=== PATIENT | male | born 1955 | race Caucasian/White ===

== ENCOUNTER 2019-04-03 07:11 | Observation (INO) | payer BC ==
[2019-04-03] MEDS ORDERED: Sodium Chloride 0.9% 2.5 ML Syringe FLUSH PRN (07:19)
[2019-04-03] MEDS ORDERED: Aspirin 81 MG Tab.Chew PO ONE (07:19)
[2019-04-03] MEDS ORDERED: Sodium Chloride 0.9% 10 ML Syringe FLUSH PRN (07:19)
--- NOTE | 2019-04-03 07:19 | EDM.PDOC ---
ED HPI GENERAL MEDICAL PROBLEM - General Stated Complaint: CHEST PAIN, SHORTNESS OF BREATH Time Seen by Provider: 04/03/19 07:18 Source of Information: Reports: Patient History Limitations: Reports: No Limitations - History of Present Illness INITIAL COMMENTS - FREE TEXT/NARRATIVE: History of present illness: []Patient woke up at 5:00 with right-sided neck pain got dressed and went to a restaurant for breakfast where he had a brief episode of sharp 4/10 chest pain radiating to his back lasting a few seconds. Patient states the last 2 days he' s been feeling dizzy but has not had any syncopal episodes or previous episodes of chest pain. His any history of cardiac disease or previous [facility]. Patient has no chest pain now. Review of systems: As per history of present illness and below otherwise all systems reviewed and negative. Past medical history: As per history of present illness and as reviewed below otherwise noncontributory. Surgical history: As per history of present illness and as reviewed below otherwise noncontributory. Social history: No reported history of drug or alcohol abuse. Family history: As per history of present illness and as reviewed below otherwise noncontributory. Physical exam: General: Well developed, well nourished in NAD HEENT: Atraumatic, normocephalic, pupils reactive, negative for conjunctival pallor or scleral icterus, mucous membranes moist, throat clear, neck supple, nontender, trachea midline. Lungs: Clear to auscultation, breath sounds equal bilaterally, chest nontender. Heart: S1S2, regular, negative for clicks, rubs, or JVD. Abdomen: NABS, Soft, nondistended, nontender. Negative for masses or hepatosplenomegaly. Negative for costovertebral tenderness. Pelvis: Stable nontender. Genitourinary: Deferred. Rectal: Deferred. Extremities: Atraumatic, negative for cords or calf pain. Neurovascular unremarkable. Neuro: Awake, alert, oriented. Cranial nerves II through XII unremarkable. Cerebellum unremarkable. Motor and sensory unremarkable throughout. Exam nonfocal. Skin:warm and dry Diagnostics: monitor, EKG, chest x-ray, CBC, chemistry, troponin Therapeutics: IV aspirin nitroglycerin ED Course: Patient improved after nitroglycerin Impression: Chest pain Prescriptions: None Plan: Admit to hospitalist for further workup Definitive disposition and diagnosis as appropriate pending reevaluation and review of above. chest Pain Score (Numeric/FACES): 5 - Related Data Allergies Allergy/AdvReac Type Severity Reaction Status Date / Time acetaminophen [From Lortab] Allergy Cannot Verified 04/03/19 07:22 Remember hydrocodone [From Lortab] Allergy Cannot Verified 04/03/19 07:22 Remember Home Meds: Home Meds Empagliflozin [Jardiance] 25 mg PO DAILY 04/03/19 [History] Gabapentin [Neurontin] 300 mg PO BEDTIME 04/03/19 [History] Glimepiride 1 mg PO WITHBREAKFAST 04/03/19 [History] Lisinopril 10 mg PO BEDTIME 04/03/19 [History] Semaglutide [Ozempic] 1 mg SUBCUT WEEKLY 04/03/19 [History] Sildenafil [Revatio] 20 mg PO ASDIRECTED PRN MDD 5 TABLETS 04/03/19 [History] Tamsulosin [Tamsulosin 24 Hr] 0.4 mg PO DAILY 04/03/19 [History] metFORMIN [Glucophage XR] 1,000 mg PO BIDMEALS 04/03/19 [History] ED ROS GENERAL - Review of Systems Review Of Systems: See Below ED EXAM, GENERAL - Physical Exam Exam: See Below Course - Vital Signs Last Recorded V/S: Last Vital Signs Temp 97.8 F 04/03/19 09:27 Pulse 80 04/03/19 09:27 Resp 16 04/03/19 09:27 BP 144/79 H 04/03/19 09:27 Pulse Ox 97 04/03/19 09:27 - Orders/Labs/Meds Orders: Active Orders 24 hr Category Date Time Status Patient Status [ADT] Stat ADT 04/03/19 08:13 Active Cardiac Monitoring [RC] . DIRECTED Care 04/03/19 07:19 Active EKG Documentation Completion [RC] STAT Care 04/03/19 07:19 Active Pulse Oximetry [RC] ASDIRECTED Care 04/03/19 07:19 Active Aspirin Med 04/03/19 09:00 Active 162 mg PO DAILY Nitroglycerin [Nitrostat] Med 04/03/19 07:20 Active 0.4 mg SL Q5M PRN Sodium Chloride 0.9% [Saline Flush] Med 04/03/19 07:19 Active 10 ml FLUSH ASDIRECTED PRN Sodium Chloride 0.9% [Saline Flush] Med 04/03/19 07:19 Active 2.5 ml FLUSH ASDIRECTED PRN Saline Lock Insert [OM.PC] Stat Oth 04/03/19 07:19 Ordered Medication Orders Aspirin (Aspirin) 162 mg PO DAILY ULISSES Last Admin: 04/03/19 07:30 Dose: 162 mg Atorvastatin Calcium (Lipitor) 40 mg PO BEDTIME ULISSES Nitroglycerin (Nitrostat) 0.4 mg SL Q5M PRN PRN Reason: Chest Pain Last Admin: 04/03/19 07:49 Dose: 0.4 mg Admin: 04/03/19 07:33 Dose: 0.4 mg Sodium Chloride (Saline Flush) 10 ml FLUSH ASDIRECTED PRN PRN Reason: Keep Vein Open Last Admin: 04/03/19 07:34 Dose: 10 ml Sodium Chloride (Saline Flush) 2.5 ml FLUSH ASDIRECTED PRN PRN Reason: Keep Vein Open Last Admin: 04/03/19 07:34 Dose: 2.5 ml Labs: Laboratory Tests 04/03/19 04/03/19 04/03/19 Range/Units 07:13 07:13 07:13 WBC 6.14 (4.0-11.0) K/uL RBC 5.15 (4.50-5.90) M/uL Hgb 14.5 (13.0-17.0) g/dL Hct 43.0 (38.0-50.0) % MCV 83.5 (80.0-98.0) fL MCH 28.2 (27.0-32.0) pg MCHC 33.7 (31.0-37.0) g/dL RDW Std Deviation 40.2 (28.0-62.0) fl RDW Coeff of Aliza 13 (11.0-15.0) % Plt Count 181 (150-400) K/uL MPV 11.20 (7.40-12.00) fL Neut % (Auto) 67.8 (48.0-80.0) % Lymph % (Auto) 22.3 (16.0-40.0) % [place] % (Auto) 6.7 (0.0-15.0) % Eos % (Auto) 2.4 (0.0-7.0) % Baso % (Auto) 0.8 (0.0-1.5) % Neut # (Auto) 4.2 (1.4-5.7) K/uL Lymph # (Auto) 1.4 (0.6-2.4) K/uL [place] # (Auto) 0.4 (0.0-0.8) K/uL Eos # (Auto) 0.2 (0.0-0.7) K/uL Baso # (Auto) 0.1 (0.0-0.1) K/uL Nucleated RBC % 0.0 /100WBC Nucleated RBCs # 0 K/uL Sodium 141 (136-148) mmol/L Potassium 3.9 (3.5-5.1) mmol/L Chloride 105 (98-107) mmol/L Carbon Dioxide 25.0 (21.0-32.0) mmol/L BUN 16 (7.0-18.0) mg/dL Creatinine 1.1 (0.8-1.3) mg/dL Est Cr Clr Drug Dosing 63.88 mL/min Estimated GFR (MDRD) > 60.0 ml/min Glucose 237 H (74-106) mg/dL Hemoglobin A1c (4.5-6.2) % Calcium 8.7 (8.5-10.1) mg/dL Total Bilirubin 0.4 (0.2-1.0) mg/dL AST 12 L (15-37) IU/L ALT 16 (14-63) IU/L Alkaline Phosphatase 82 (46-116) U/L Troponin I < 0.050 (0.000-0.056) ng/mL Total Protein 7.2 (6.4-8.2) g/dL Albumin 3.7 (3.4-5.0) g/dL Globulin 3.5 (2.6-4.0) g/dL Albumin/Globulin Ratio 1.1 (0.9-1.6) Triglycerides 88 (0-200) mg/dL Cholesterol 181 (50-200) mg/dL LDL Cholesterol, Calc 118 (60-180) mg/dL VLDL Cholesterol 17 (5-55) mg/dL HDL Cholesterol 45 (40-60) mg/dL Cholesterol/HDL Ratio 4.0 (3.3-6.0) 04/03/19 Range/Units 07:13 WBC (4.0-11.0) K/uL RBC (4.50-5.90) M/uL Hgb (13.0-17.0) g/dL Hct (38.0-50.0) % MCV (80.0-98.0) fL MCH (27.0-32.0) pg MCHC (31.0-37.0) g/dL RDW Std Deviation (28.0-62.0) fl RDW Coeff of Aliza (11.0-15.0) % Plt Count (150-400) K/uL MPV (7.40-12.00) fL Neut % (Auto) (48.0-80.0) % Lymph % (Auto) (16.0-40.0) % [place] % (Auto) (0.0-15.0) % Eos % (Auto) (0.0-7.0) % Baso % (Auto) (0.0-1.5) % Neut # (Auto) (1.4-5.7) K/uL Lymph # (Auto) (0.6-2.4) K/uL [place] # (Auto) (0.0-0.8) K/uL Eos # (Auto) (0.0-0.7) K/uL Baso # (Auto) (0.0-0.1) K/uL Nucleated RBC % /100WBC Nucleated RBCs # K/uL Sodium (136-148) mmol/L Potassium (3.5-5.1) mmol/L Chloride (98-107) mmol/L Carbon Dioxide (21.0-32.0) mmol/L BUN (7.0-18.0) mg/dL Creatinine (0.8-1.3) mg/dL Est Cr Clr Drug Dosing mL/min Estimated GFR (MDRD) ml/min Glucose (74-106) mg/dL Hemoglobin A1c 7.2 H (4.5-6.2) % Calcium (8.5-10.1) mg/dL Total Bilirubin (0.2-1.0) mg/dL AST (15-37) IU/L ALT (14-63) IU/L Alkaline Phosphatase (46-116) U/L Troponin I (0.000-0.056) ng/mL Total Protein (6.4-8.2) g/dL Albumin (3.4-5.0) g/dL Globulin (2.6-4.0) g/dL Albumin/Globulin Ratio (0.9-1.6) Triglycerides (0-200) mg/dL Cholesterol (50-200) mg/dL LDL Cholesterol, Calc (60-180) mg/dL VLDL Cholesterol (5-55) mg/dL HDL Cholesterol (40-60) mg/dL Cholesterol/HDL Ratio (3.3-6.0) Meds: Medications Generic Name Dose Route Start Last Admin Trade Name Jensq PRN Reason Stop Dose Admin Aspirin 162 mg 04/03/19 09:00 04/03/19 07:30 Aspirin PO 162 mg DAILY ULISSES Administration Atorvastatin Calcium 40 mg 04/03/19 21:00 Lipitor PO BEDTIME ULISSES Nitroglycerin 0.4 mg 04/03/19 07:20 04/03/19 07:49 Nitrostat SL 0.4 mg Q5M PRN Administration Chest Pain Sodium Chloride 10 ml 04/03/19 07:19 04/03/19 07:34 Saline Flush FLUSH 10 ml ASDIRECTED PRN Administration Keep Vein Open Sodium Chloride 2.5 ml 04/03/19 07:19 04/03/19 07:34 Saline Flush FLUSH 2.5 ml ASDIRECTED PRN Administration Keep Vein Open Discontinued Medications Generic Name Dose Route Start Last Admin Trade Name Jensq PRN Reason Stop Dose Admin Aspirin 324 mg 04/03/19 07:19 04/03/19 07:34 Aspirin PO 04/03/19 07:20 Not Given ONETIME ONE Gadobenate Dimeglumine 20 ml 04/03/19 09:56 04/03/19 09:57 Multihance IVPUSH 04/03/19 09:57 13 ml ONETIME STA Administration Departure - Departure Time of Disposition: 09:30 Disposition: Refer to Observation Condition: Good Clinical Impression: Chest pain - My Orders Last 24 Hours: My Active Orders 04/03/19 07:19 Cardiac Monitoring [RC] . DIRECTED EKG Documentation Completion [RC] STAT Pulse Oximetry [RC] ASDIRECTED Sodium Chloride 0.9% [Saline Flush] 10 ml FLUSH ASDIRECTED PRN Sodium Chloride 0.9% [Saline Flush] 2.5 ml FLUSH ASDIRECTED PRN Saline Lock Insert [OM.PC] Stat 11/01/19 07:20 Nitroglycerin [Nitrostat] 0.4 mg SL Q5M PRN 04/03/19 08:13 Patient Status [ADT] Stat 04/03/19 09:00 Aspirin 162 mg PO DAILY - Assessment/Plan Last 24 Hours: My Active Orders 04/03/19 07:19 Cardiac Monitoring [RC] . DIRECTED EKG Documentation Completion [RC] STAT Pulse Oximetry [RC] ASDIRECTED Sodium Chloride 0.9% [Saline Flush] 10 ml FLUSH ASDIRECTED PRN Sodium Chloride 0.9% [Saline Flush] 2.5 ml FLUSH ASDIRECTED PRN Saline Lock Insert [OM.PC] Stat 04/03/19 07:20 Nitroglycerin [Nitrostat] 0.4 mg SL Q5M PRN 04/03/19 08:13 Patient Status [ADT] Stat 04/03/19 09:00 Aspirin 162 mg PO DAILY
[2019-04-03] MEDS: Nitroglycerin 0.4 MG Tab.SL SL PRN ×2 (07:33→07:49)
[2019-04-03 07:59] LABS: BLOOD UREA NITROGEN,BUN 16 mg/dL (7.0-18.0); CHLORIDE,CL 105 mmol/L (98-107); GLUCOSE RANDOM 237 mg/dL (74-106); POTASSIUM,K 3.9 mmol/L (3.5-5.1); SODIUM,NA 141 mmol/L (136-148)
--- NOTE | 2019-04-03 08:42 | CR ---
INDICATION: Chest pain. COMPARISON: 08/11/2018. TECHNIQUE: Single view of the chest. FINDINGS: Cardiomediastinal silhouette is within normal limits. No focal lung consolidation, pleural effusion or pneumothorax. Cardiac leads overlie the chest. IMPRESSION: No acute cardiopulmonary abnormality. Dictated by Db Hawkins MD @ Apr 03 2019 8:41AM Signed by Dr. Db Hawkins @ Apr 03 2019 8:42AM
[2019-04-03] MEDS ORDERED: Aspirin 81 MG Tab.Chew PO SCH (09:00)
--- NOTE | 2019-04-03 09:08 | PCM.HP.2 ---
H&P History of Present Illness - General Date of Service: 04/03/19 Admit Problem/Dx: Admission Diagnosis/Problem Admission Diagnosis/Problem Chest pain Source of Information: Patient History Limitations: Reports: No Limitations - History of Present Illness Initial Comments - Free Text/Narative: This 64 year old male with pmh og HTN, DM Type 2 presented to the ED with complaints of chest pain and slurred speech this morning. He reports he woke up with R sided neck pain. He went to eat breakfast and noted some difficulty swallowing and troubling speaking. He left and headed to work. While he was driving to work he started having L sided chest pain that went to his back and radiated down his left arm. He denies dyspnea with chest pain. Reports mild diaphoresis or a flushing feeling. and then the pain quickly subsided, within seconds per his report. He arrived at work and was talking to co-workers and they told him his speech was slurred and he agreed he was having a hard time getting words out. He reports mild headache as well, but nothing new and does not describe it as very bad. While in the ED, he did not tell ED provider of slurred speech event. Stroke Code called after this was disclosed to me. He denies focal neurologic deficits at this time, no limb weakness or sensory concerns. No blurred vision or double vision. He denies sore throat, sinus congestion or ear pain. No recent URI. He denies current chest pain. Reports mild R neck pain, pointing to anterior sternocleidomastoid. Reports mild frontal bilateral headache. No dyspnea or abdominal pain. No trouble urinating or black or blood BMs. In the ED Labwork WNL. Glucose 237. troponin negative. CXR negative. EKG reveals minimal ST elevation, but appears to be repolarization. Will monitor. BP on arrival was 190/100, give nitro x 2, brought BP to 150 SBP. He was feeling better, but was very concerned with events. PCP, Dr. Thompson chest Pain Score (Numeric/FACES): 5 - Related Data Allergies/Adverse Reactions: Allergies Allergy/AdvReac Type Severity Reaction Status Date / Time acetaminophen [From Lortab] Allergy Cannot Verified 04/03/19 07:22 Remember hydrocodone [From Lortab] Allergy Cannot Verified 04/03/19 07:22 Remember Home Medications: Home Meds Empagliflozin [Jardiance] 25 mg PO DAILY 04/03/19 [History] Gabapentin [Neurontin] 300 mg PO BEDTIME 04/03/19 [History] Glimepiride 1 mg PO WITHBREAKFAST 04/03/19 [History] Lisinopril 10 mg PO BEDTIME 04/03/19 [History] Semaglutide [Ozempic] 1 mg SUBCUT WEEKLY 04/03/19 [History] Sildenafil [Revatio] 20 mg PO ASDIRECTED PRN MDD 5 TABLETS 04/03/19 [History] Tamsulosin [Tamsulosin 24 Hr] 0.4 mg PO DAILY 04/03/19 [History] metFORMIN [Glucophage XR] 1,000 mg PO BIDMEALS 04/03/19 [History] Past Medical History Cardiovascular History: Reports: Hypertension. Denies: Afib, Blood Clots/VTE/ DVT, [place], Stents Respiratory History: Reports: None. Denies: Asthma, COPD Gastrointestinal History: Reports: None Genitourinary History: Reports: None Neurological History: Reports: Migraines. Denies: CVA, TIA Psychiatric History: Reports: None Endocrine/Metabolic History: Reports: Diabetes, Type II. Denies: Obesity/BMI 30 + Oncologic (Cancer) History: Reports: None - Infectious Disease History Infectious Disease History: Reports: None - Past Surgical History Musculoskeletal Surgical History: Reports: Other (See Below) Other Musculoskeletal Surgeries/Procedures:: back surgery, left index amputation Social & Family History - Family History Family Medical History: Noncontributory - Tobacco Use Smoking Status *Q: Light Tobacco Smoker Tobacco Use Within Last Twelve Months: Smokeless Tobacco Years of Tobacco use: 1 Packs/Tins Daily: 1 - Alcohol Use Alcohol Use History: No Alcohol Use Frequency: Rarely - Recreational Drug Use Recreational Drug Use: No - Living Situation & Occupation Occupation: Employed H&P Review of Systems - Review of Systems: Review Of Systems: See Below General: Reports: No Symptoms. Denies: Fever, Chills, Malaise, Weakness HEENT: Denies: Headaches, Sinus Congestion, Sore Throat, Vertigo Pulmonary: Denies: Shortness of Breath, Cough, Sputum Cardiovascular: Reports: Chest Pain (last a few seconds, see HPI) Gastrointestinal: Reports: No Symptoms. Denies: Abdominal Pain, Black Stool, Bloody Stool, Nausea, Vomiting Genitourinary: Reports: No Symptoms. Denies: Dysuria, Frequency, Burning Musculoskeletal: Reports: Neck Pain (R anterior neck and bilateral trapezius) Skin: Reports: No Symptoms. Denies: Rash, Wound Psychiatric: Reports: No Symptoms. Denies: Anxiety Neurological: Reports: Trouble Speaking (slurred speech noted at work, see HPI. No longer exhibiting these symptoms) Hematologic/Lymphatic: Reports: No Symptoms Immunologic: Reports: No Symptoms Exam - Exam Exam: See Below - Vital Signs Vital Signs: Last Vital Signs Temp 97.4 F 04/03/19 07:18 Pulse 80 04/03/19 08:15 Resp 18 04/03/19 08:15 BP 146/87 H 04/03/19 08:15 Pulse Ox 98 04/03/19 08:15 Weight: 64.864 kg - Exam General: Alert, Oriented, Cooperative HEENT: Conjunctiva Clear, Mucosa Moist & [place], Pupils Equal, Pupils Reactive, PERRLA Neck: Supple, Trachea Midline, +2 Carotid Pulse wo Bruit, Full Range of Motion. No: Lymphadenopathy Lungs: Clear to Auscultation, Normal Respiratory Effort Cardiovascular: Regular Rate, Regular Rhythm, Normal S2. No: Systolic Murmur GI/Abdominal Exam: Normal Bowel Sounds, Soft, Non-Tender Back Exam: Normal Inspection, Full Range of Motion Extremities: Normal Inspection, Normal Range of Motion, Non-Tender, No Pedal Edema Skin: Warm, Dry. No: Rash Neurological: Cranial Nerves Intact, Reflexes Equal Bilateral, Normal Gait, Normal Speech Neuro Extensive - Mental Status: Alert, Oriented x3, Normal Mood/Affect, Normal Cognition Neuro Extensive - Motor, Sensory, Reflexes: CN II-XII Intact, Normal Gait. No: Facial palsy (L), Facial Palsy (R) Psychiatric: Alert, Normal Affect, Normal Mood - Patient Data Lab Results Last 24 hrs: Laboratory Results - last 24 hr 04/03/19 04/03/19 Range/Units 07:13 07:13 WBC 6.14 (4.0-11.0) K/uL RBC 5.15 (4.50-5.90) M/uL Hgb 14.5 (13.0-17.0) g/dL Hct 43.0 (38.0-50.0) % MCV 83.5 (80.0-98.0) fL MCH 28.2 (27.0-32.0) pg MCHC 33.7 (31.0-37.0) g/dL RDW Std Deviation 40.2 (28.0-62.0) fl RDW Coeff of Aliza 13 (11.0-15.0) % Plt Count 181 (150-400) K/uL MPV 11.20 (7.40-12.00) fL Neut % (Auto) 67.8 (48.0-80.0) % Lymph % (Auto) 22.3 (16.0-40.0) % [place] % (Auto) 6.7 (0.0-15.0) % Eos % (Auto) 2.4 (0.0-7.0) % Baso % (Auto) 0.8 (0.0-1.5) % Neut # (Auto) 4.2 (1.4-5.7) K/uL Lymph # (Auto) 1.4 (0.6-2.4) K/uL [place] # (Auto) 0.4 (0.0-0.8) K/uL Eos # (Auto) 0.2 (0.0-0.7) K/uL Baso # (Auto) 0.1 (0.0-0.1) K/uL Nucleated RBC % 0.0 /100WBC Nucleated RBCs # 0 K/uL Sodium 141 (136-148) mmol/L Potassium 3.9 (3.5-5.1) mmol/L Chloride 105 (98-107) mmol/L Carbon Dioxide 25.0 (21.0-32.0) mmol/L BUN 16 (7.0-18.0) mg/dL Creatinine 1.1 (0.8-1.3) mg/dL Est Cr Clr Drug Dosing 63.88 mL/min Estimated GFR (MDRD) > 60.0 ml/min Glucose 237 H (74-106) mg/dL Calcium 8.7 (8.5-10.1) mg/dL Total Bilirubin 0.4 (0.2-1.0) mg/dL AST 12 L (15-37) IU/L ALT 16 (14-63) IU/L Alkaline Phosphatase 82 (46-116) U/L Troponin I < 0.050 (0.000-0.056) ng/mL Total Protein 7.2 (6.4-8.2) g/dL Albumin 3.7 (3.4-5.0) g/dL Globulin 3.5 (2.6-4.0) g/dL Albumin/Globulin Ratio 1.1 (0.9-1.6) Result Diagrams: 04/03/19 07:13 04/03/19 07:13 EKG INTERPRETATION EKG Date: 04/03/19 Rate (Beats/Min): 84 P-Wave: Present QRS: Normal ST-T: Elevated (in lead V2-3, appears to be repolarization) QT: Normal Comparison: NA - No Prior EKG - Problem List (1) TIA (transient ischemic attack) SNOMED Code(s): 310381747 ICD Code: G45.9 - TRANSIENT CEREBRAL ISCHEMIC ATTACK, UNSPECIFIED Status: Acute Current Visit: Yes (2) Chest pain SNOMED Code(s): 60061156 ICD Code: R07.9 - CHEST PAIN, UNSPECIFIED Status: Acute Current Visit: Yes (3) HTN (hypertension) SNOMED Code(s): 53175447 ICD Code: I10 - ESSENTIAL (PRIMARY) HYPERTENSION Status: Chronic Current Visit: Yes Qualifiers: Hypertension type: essential hypertension Qualified Code(s): I10 - Essential (primary) hypertension (4) DM type 2 (diabetes mellitus, type 2) SNOMED Code(s): 26146726 ICD Code: E11.9 - TYPE 2 DIABETES MELLITUS WITHOUT COMPLICATIONS Status: Chronic Current Visit: Yes (5) Chewing tobacco use SNOMED Code(s): 07051817 ICD Code: Z72.0 - TOBACCO USE Status: Acute Current Visit: Yes Problem List Initiated/Reviewed/Updated: Yes Orders Last 24hrs: Active Orders 24 hr Category Date Time Status Patient Status [ADT] Stat ADT 04/03/19 08:13 Active Cardiac Monitoring [RC] . DIRECTED Care 04/03/19 07:19 Active EKG Documentation Completion [RC] STAT Care 04/03/19 07:19 Active Pulse Oximetry [RC] ASDIRECTED Care 04/03/19 07:19 Active Head wo Cont [CT] Stat Exams 04/03/19 08:49 Taken GLYCOSYLATED HEMOGLOBIN,HGBA1C [CHEM] Stat Lab 04/03/19 09:04 Ordered LIPID PANEL [CHEM] Stat Lab 04/03/19 09:04 Ordered UA W/ULI RFLX IF INDICATED [URIN] Stat Lab 04/03/19 09:01 Received Aspirin Med 04/03/19 09:00 Active 162 mg PO DAILY Nitroglycerin [Nitrostat] Med 04/03/19 07:20 Active 0.4 mg SL Q5M PRN Sodium Chloride 0.9% [Saline Flush] Med 04/03/19 07:19 Active 10 ml FLUSH ASDIRECTED PRN Sodium Chloride 0.9% [Saline Flush] Med 04/03/19 07:19 Active 2.5 ml FLUSH ASDIRECTED PRN Saline Lock Insert [OM.PC] Stat Oth 04/03/19 07:19 Ordered Medication Orders Aspirin (Aspirin) 162 mg PO DAILY ULSISES Last Admin: 04/03/19 07:30 Dose: 162 mg Nitroglycerin (Nitrostat) 0.4 mg SL Q5M PRN PRN Reason: Chest Pain Last Admin: 04/03/19 07:49 Dose: 0.4 mg Admin: 04/03/19 07:33 Dose: 0.4 mg Sodium Chloride (Saline Flush) 10 ml FLUSH ASDIRECTED PRN PRN Reason: Keep Vein Open Last Admin: 04/03/19 07:34 Dose: 10 ml Sodium Chloride (Saline Flush) 2.5 ml FLUSH ASDIRECTED PRN PRN Reason: Keep Vein Open Last Admin: 04/03/19 07:34 Dose: 2.5 ml Assessment/Plan Comment:: This 64 year old male admitted with suspected TIA and chest pain 1. TIA: Stroke code called in ED. Head CT obtained, which returned negative. MRI brain and MRA head and neck ordered along with ECHO. Reports he is non complaint with HTN medication most days. BP elevated on arrival 190s. Cholesterol panel reveals LDL 118, HDL 45, Total 181, and triglycerides 88. A1c 7.2. Will Continue ASA, monitor on telemetry and start 80 mg Atorvastatin. Currently asymptomatic. Counseled on tobacco use and the importance of stopping especially with HTN and now suspected TIA for 5 minutes. 2. Chest pain: Last only a few seconds. Will monitor troponins Q3 hr x 3 due to risk factors. Monitor on Telemetry. Continue ASA 3. DM type 2: Hold PO medications. Novolog SSI with check BS with meals. 4. HTN: Elevated, allow permissive for now until MRI returns. If no CVA will continue Lisinopril and monitor. VTE prophylaxis: Lovenox. Dispo: 1-2 days. - Mortality Measure Prognosis:: Good
--- NOTE | 2019-04-03 09:11 | CT ---
INDICATION: Slurred speech. TECHNIQUE: CT head without contrast. COMPARISON: None. FINDINGS: CSF spaces: Within normal limits for age. Brain parenchyma: The ray-white differentiation is normal. No sign of mass, hemorrhage, or midline shift. Skull base and calvarium: The visualized paranasal sinuses and mastoid air cells demonstrate no acute or significant findings. The visualized orbits are grossly unremarkable. No skull fractures. IMPRESSION: No acute intracranial abnormality. Please note that CT is insensitive for early detection acute ischemia. Consider follow-up CT, or MRI if clinically indicated. Please note that all CT scans at this facility use dose modulation, iterative reconstruction, and/or weight-based dosing when appropriate to reduce radiation dose to as low as reasonably achievable. Dictated by Db Hawkins MD @ Apr 03 2019 9:08AM Signed by Dr. Db Hawkins @ Apr 03 2019 9:10AM
[2019-04-03 09:42] LABS: HEMOGLOBIN A1C 7.2 % (4.5-6.2)
[2019-04-03] MEDS ORDERED: Gadobenate Dimeglumine 529 MG/ML 20 ML SDV IVPUSH STA (09:56)
[2019-04-03] MEDS ORDERED: Enoxaparin 40 MG/0.4 ML Syringe SUBCUT SCH (12:00)
[2019-04-03] MEDS: Insulin Aspart 100 Units/ML 3 ML Pen SUBCUT SCH ×2 (12:21→16:51)
[2019-04-03 12:34] LABS: LIPASE 197 U/L (73-393)
--- NOTE | 2019-04-03 12:34 | MR ---
Indication: TIA. Slurred speech. Technique: MRI Head: performed before and after IV contrast. MRA Head: performed without IV contrast. MRA Neck: performed before and after IV contrast. Gadolinium-based contrast agent: 13 mL MultiHance IV contrast. Comparison: CT head 04/03/2019 Findings: MRI Head: No evidence for recent or remote infarct or hemorrhage. No intracranial mass effect. No ventricular obstruction. Grossly normal flow voids are maintained in the directly imaged intracranial vascular structures. The craniovertebral junction is unremarkable, with a patent foramen magnum. Both temporal bones are clear. MRA Head: Internal carotid arteries, middle cerebral arteries and anterior cerebral arteries are normal. MCA bifurcations and anterior communicating artery region are normal. Distal vertebral arteries, basilar artery, and posterior cerebral arteries are normal. Basilar tip is normal. No aneurysms, stenoses, or occlusions, throughout. MRA Neck: The cervical segments of both vertebral arteries are patent. The visualized portions of the aortic arch, great vessel origins and proximal subclavian arteries are unremarkable. No evidence for hemodynamically significant internal carotid artery stenosis by NASCET criteria. Impression: MRI Head: 1. No acute pathology identified. No evidence for mass, hemorrhage or recent infarct. MRA Head: 1. No proximal arterial occlusion, high-grade stenosis, aneurysm, dissection, or vascular malformation. MRA Neck: 1. No evidence for hemodynamically significant ICA stenosis by NASCET criteria. 2. No evidence for carotid or vertebral artery dissection in the neck. Dictated by Db Clemente MD @ Apr 03 2019 12:20PM Signed by Dr. Db Clemente @ Apr 03 2019 12:33PM
[2019-04-03] MEDS ORDERED: Lisinopril 10 MG Tab PO SCH (13:22)
[2019-04-03] MEDS ORDERED: atorvaSTATin 40 MG Tab PO SCH (21:00)
[2019-04-03] MEDS ORDERED: Gabapentin 300 MG Cap PO SCH (21:00)
[2019-04-04] MEDS ORDERED: Tamsulosin 0.4 MG Cap.ER PO SCH (09:00)
== END 2019-04-03 19:30 | disposition home or self-care (01) ==
LOC: MW.ED 07:11 → MW.MS 08:57
PROVIDERS: ADMIT Student in an Organized Health Care Education/Training Program; ATTEND Student in an Organized Health Care Education/Training Program
DX: G45.9 Transient cerebral ischemic attack, unspecified (principal); R07.9 Chest pain, unspecified; I10 Essential (primary) hypertension; E11.9 Type 2 diabetes mellitus without complications; G43.909 Migraine, unspecified, not intractable, without status migrainosus; F17.210 Nicotine dependence, cigarettes, uncomplicated; Z88.6 Allergy status to analgesic agent; Z88.5 Allergy status to narcotic agent; Z79.899 Other long term (current) drug therapy
CPT/HCPCS: 36415; 70450; 70544; 70547; 70553; 71045; 80053; 80061; 81003; 82150; 82962; 83036; 83690; 84484; 85025; 93005; 93306; 96372; 99285; A9270; A9577; G0378; J1650; 99284

== ENCOUNTER 2019-05-11 08:17 | Day surgery (SDC) | payer BC ==
[~2019-05-11 08:17] MED LIST: Lactated Ringers 1,000 ML IV SCH; Lidocaine 2% 5 ML SDV ONE; Ondansetron 4 MG/2 ML SDV ONE; Propofol 200 MG/20 ML SDV ONE
--- NOTE | 2019-05-11 08:53 | PCM.PREANE ---
Preanesthetic Assessment - Anesthesia/Transfusion/Family Hx Anesthesia History: Prior Anesthesia Without Reaction Family History of Anesthesia Reaction: No Transfusion History: No Prior Transfusion(s) - Review of Systems General: No Symptoms Pulmonary: No Symptoms Cardiovascular: No Symptoms Gastrointestinal: No Symptoms Neurological: No Symptoms - Physical Assessment Height: 5 ft 8 in Weight: 65.771 kg ASA Class: 2 Mental Status: Alert & Oriented x3 Airway Class: Mallampati = 2 Dentition: Reports: Normal Dentition ROM/Head Extension: Full Lungs: Clear to Auscultation, Normal Respiratory Effort Cardiovascular: Regular Rate, Regular Rhythm - Allergies Allergies/Adverse Reactions: Allergies Allergy/AdvReac Type Severity Reaction Status Date / Time acetaminophen [From Lortab] Allergy Hallucinati Verified 05/07/19 14:23 ons hydrocodone [From Lortab] Allergy Hallucinati Verified 05/07/19 14:23 ons - Blood Blood Available: No - Anesthesia Plan Pre-Op Medication Ordered: None - Acknowledgements Anesthesia Type Planned: General Anesthesia Pt an Appropriate Candidate for the Planned Anesthesia: Yes Alternatives and Risks of Anesthesia Discussed w Pt/Guardian: Yes Pt/Guardian Understands and Agrees with Anesthesia Plan: Yes Additional Comments: PMH: htn, dm2, periph neuropathy, chews tobacco- non smoker PLAN: tiva PreAnesthesia Questionnaire HEENT History: Reports: Other (See Below) Other HEENT History: wears glasses/contacts, top upper permanent bridge Cardiovascular History: Reports: Hypertension Respiratory History: Reports: None Gastrointestinal History: Reports: None Other Gastrointestinal History: occasional heartburn, intermittent epigastric pain Genitourinary History: Reports: None Musculoskeletal History: Reports: Fracture Other Musculoskeletal History: hx fx jaw Neurological History: Reports: Migraines Psychiatric History: Reports: None Endocrine/Metabolic History: Reports: Diabetes, Type II Hematologic History: Reports: None Immunologic History: Reports: None Oncologic (Cancer) History: Reports: None Dermatologic History: Reports: Eczema - Infectious Disease History Infectious Disease History: Reports: None - Past Surgical History Head Surgeries/Procedures: Reports: None HEENT Surgical History: Reports: None Cardiovascular Surgical History: Reports: None Respiratory Surgical History: Reports: None GI Surgical History: Reports: Colonoscopy Endocrine Surgical History: Reports: None Neurological Surgical History: Reports: Lumbar Spine Other Neurological Surgeries/Procedures: hx back surgery Musculoskeletal Surgical History: Reports: Other (See Below) Other Musculoskeletal Surgeries/Procedures:: back surgery, left index amputation Oncologic Surgical History: Reports: None Dermatological Surgical History: Reports: None - SUBSTANCE USE Tobacco Use Within Last Twelve Months: Other (See Below) Recreational Drug Use History: No - HOME MEDS Home Medications: Home Meds Empagliflozin [Jardiance] 10 mg PO DAILY 04/03/19 [History] Glimepiride 1 mg PO WITHBREAKFAST 04/03/19 [History] Lisinopril 20 mg PO BEDTIME 04/03/19 [History] Semaglutide [Ozempic] 1 mg SUBCUT WEEKLY 04/03/19 [History] metFORMIN [Glucophage XR] 1,000 mg PO BIDMEALS 04/03/19 [History] Omeprazole 20 mg PO DAILY 05/06/19 [History] atorvaSTATin [Lipitor] 40 mg PO BEDTIME 05/06/19 [History] - CURRENT (IN HOUSE) MEDS Current Meds: Current Medications Lactated Ringer's (Ringers, Lactated) 1,000 mls @ 125 mls/hr IV ASDIRECTED ULISSES Discontinued Medications Lidocaine (Xylocaine-Mpf 2%) Confirm Administered Dose 5 ml .ROUTE .STK-MED ONE Stop: 05/11/19 07:25 Ondansetron HCl (Zofran) Confirm Administered Dose 4 mg .ROUTE .STK-MED ONE Stop: 05/11/19 07:25 Propofol (Diprivan 20 Ml) Confirm Administered Dose 400 mg .ROUTE .STK-MED ONE Stop: 05/11/19 07:24
--- NOTE | 2019-05-11 10:55 | PCM.OPNOTE ---
- General Post-Op/Procedure Note Date of Surgery/Procedure: 05/11/19 Operative Procedure(s): Colonoscopy with cold rectal polypectomy Pre Op Diagnosis: Rectal bleeding Post-Op Diagnosis: Rectal polyp, sigmoid diverticulosis, internal hemorrhoids Anesthesia Technique: MAC (ASA II) Primary Surgeon: Aayush Casey Condition: Good Free Text/Narrative:: DICTATION [id number] CPT CODE 83768
[2019-05-11] MEDS ORDERED: Lactated Ringers 1,000 ML IV SCH (11:00)
--- NOTE | 2019-05-11 11:33 | PCM.POSTAN ---
POST ANESTHESIA ASSESSMENT - MENTAL STATUS Mental Status: Alert, Oriented - VITAL SIGNS Vital Signs: Last Vital Signs Temp 97.7 F 05/11/19 08:35 Pulse 67 05/11/19 11:10 Resp 12 05/11/19 11:10 BP 136/76 05/11/19 11:10 Pulse Ox 96 05/11/19 11:10 - RESPIRATORY Respiratory Status: Respiratory Rate WNL, Airway Patent, O2 Saturation Stable - CARDIOVASCULAR CV Status: Pulse Rate WNL, Blood Pressure Stable - GASTROINTESTINAL GI Status: No Symptoms - POST OP HYDRATION Hydration Status: Adequate & Stable
--- NOTE | 2019-05-11 11:33 | PCM48HPAN ---
Post Anesthesia Note - EVALUATION WITHIN 48HRS OF ANESTHETIC Vital Signs in Normal Range: Yes Patient Participated in Evaluation: Yes Respiratory Function Stable: Yes Airway Patent: Yes Cardiovascular Function Stable: Yes Hydration Status Stable: Yes Pain Control Satisfactory: Yes Nausea and Vomiting Control Satisfactory: Yes Mental Status Recovered: Yes Vital Signs: Last Vital Signs Temp 97.7 F 05/11/19 08:35 Pulse 67 05/11/19 11:10 Resp 12 05/11/19 11:10 BP 136/76 05/11/19 11:10 Pulse Ox 96 05/11/19 11:10
--- NOTE | 2019-05-11 16:03 | OR ---
SURGEON: Aayush Casey M.D. DATE OF PROCEDURE: 05/11/2019 OPERATION PERFORMED: Colonoscopy with cold rectal polypectomy. PRIMARY SURGEON: Aayush Casey M.D. ANESTHESIA: MAC. ASA CLASSIFICATION: 2. PREOPERATIVE DIAGNOSIS: Rectal bleeding. POSTOPERATIVE DIAGNOSES: 1. Rectal polyp. 2. Sigmoid diverticulosis. 3. Mild internal hemorrhoids. DESCRIPTION OF PROCEDURE: The patient was taken to the endoscopy room and positioned on the endoscopy table in the left lateral decubitus position. Time-out was called for appropriate identification of the patient and procedure. Monitored anesthesia care was provided. The colonoscope was inserted into the rectum and advanced with minimal difficulty to the cecum where the colonoscope was retroflexed to visualize the ascending colon from below. The colonoscope was then straightened and slowly withdrawn. The cecum, ascending colon, hepatic flexure, transverse colon, splenic flexure, and descending colon showed no tumors, polyps, diverticula, or angiodysplastic changes. Sigmoid colon demonstrates numerous diverticula. No stricture, spasm, or bleeding was noted. No inflammatory changes were noted in the sigmoid colon and there were no sigmoid polyps. One small polyp was encountered in the rectum and removed with cold biopsy forceps. There was no significant bleeding noted. The colonoscope was then withdrawn to the distal rectum and retroflexed to visualize the anal orifice from above. No tumors or polyps were seen. The patient does have some mild hemorrhoidal changes. There was no acute bleeding noted. The colonoscope was then straightened, the rectum aspirated, and the colonoscope removed. The patient tolerated the procedure well and was taken to recovery room in stable condition. ADWOA ZAMORA /[id number]
== END 2019-05-11 11:40 | disposition home or self-care (01) ==
LOC: MW.SDS 08:17
PROVIDERS: ATTEND Surgery
DX: K57.31 Diverticulosis of large intestine without perforation or abscess with bleeding (principal); K62.1 Rectal polyp; K64.8 Other hemorrhoids; E11.9 Type 2 diabetes mellitus without complications; I10 Essential (primary) hypertension; G43.909 Migraine, unspecified, not intractable, without status migrainosus; F17.220 Nicotine dependence, chewing tobacco, uncomplicated; Z80.0 Family history of malignant neoplasm of digestive organs; Z88.6 Allergy status to analgesic agent; Z88.5 Allergy status to narcotic agent; Z79.899 Other long term (current) drug therapy; Z79.84 Long term (current) use of oral hypoglycemic drugs
CPT/HCPCS: 45380; 82962; 88305; J2001; J2405; J2704; J7120

== ENCOUNTER 2019-05-15 07:16 | Day surgery (SDC) | payer BC ==
[~2019-05-15 07:16] MED LIST changes: -Lidocaine 2% 5 ML SDV ONE; +Midazolam 1 MG/ML 2 ML SDV ONE; -Ondansetron 4 MG/2 ML SDV ONE; +cefOXitin 1 GM in Premix Bag 1 BAG IV SCH; +fentaNYL 250 MCG/5 ML SDV ONE
[2019-05-15] MEDS ORDERED: Ondansetron 4 MG/2 ML SDV ONE (07:17)
[2019-05-15] MEDS ORDERED: Rocuronium 100 MG/10 ML Syringe ONE (07:17)
[2019-05-15] MEDS ORDERED: Scopolamine 1.5 MG Transdermal Patch TRDERM PRN (08:03)
--- NOTE | 2019-05-15 08:16 | PCM.PREANE ---
Preanesthetic Assessment - Anesthesia/Transfusion/Family Hx Anesthesia History: Prior Anesthesia Without Reaction Family History of Anesthesia Reaction: No Transfusion History: No Prior Transfusion(s) - Review of Systems General: No Symptoms Pulmonary: No Symptoms Cardiovascular: No Symptoms Gastrointestinal: Abdominal Pain Neurological: No Symptoms Other: Reports: None - Physical Assessment Height: 5 ft 8 in Weight: 65.771 kg ASA Class: 2 Mental Status: Alert & Oriented x3 Airway Class: Mallampati = 2 Dentition: Reports: Normal Dentition ROM/Head Extension: Full Lungs: Clear to Auscultation, Normal Respiratory Effort Cardiovascular: Regular Rate, Regular Rhythm - Allergies Allergies/Adverse Reactions: Allergies Allergy/AdvReac Type Severity Reaction Status Date / Time acetaminophen [From Lortab] Allergy Hallucinati Verified 05/15/19 08:09 ons hydrocodone [From Lortab] Allergy Hallucinati Verified 05/15/19 08:09 ons - Blood Blood Available: No - Anesthesia Plan Pre-Op Medication Ordered: Other (scop) - Acknowledgements Anesthesia Type Planned: General Anesthesia Pt an Appropriate Candidate for the Planned Anesthesia: Yes Alternatives and Risks of Anesthesia Discussed w Pt/Guardian: Yes Pt/Guardian Understands and Agrees with Anesthesia Plan: Yes Additional Comments: PMH: dm2- glucose this am =111, htn, hld, smoker PLAN: get PreAnesthesia Questionnaire HEENT History: Reports: Other (See Below) Other HEENT History: wears glasses/contacts, has upper permanent bridge Cardiovascular History: Reports: Hypertension Respiratory History: Reports: None Gastrointestinal History: Reports: Hemorrhoids Other Gastrointestinal History: intermittent epigastric pain Genitourinary History: Reports: None Musculoskeletal History: Reports: Fracture Other Musculoskeletal History: hx fx jaw Neurological History: Reports: Migraines Psychiatric History: Reports: None Endocrine/Metabolic History: Reports: Diabetes, Type II Hematologic History: Reports: None Immunologic History: Reports: None Oncologic (Cancer) History: Reports: None Dermatologic History: Reports: Eczema - Infectious Disease History Infectious Disease History: Reports: None - Past Surgical History Head Surgeries/Procedures: Reports: None HEENT Surgical History: Reports: None Cardiovascular Surgical History: Reports: None Respiratory Surgical History: Reports: None GI Surgical History: Reports: Colonoscopy Male Surgical History: Reports: None Endocrine Surgical History: Reports: None Neurological Surgical History: Reports: Lumbar Spine Other Neurological Surgeries/Procedures: hx back surgery Musculoskeletal Surgical History: Reports: Other (See Below) Other Musculoskeletal Surgeries/Procedures:: back surgery, left index amputation Oncologic Surgical History: Reports: None Dermatological Surgical History: Reports: None - SUBSTANCE USE Tobacco Use Within Last Twelve Months: Other (See Below) - HOME MEDS Home Medications: Home Meds Empagliflozin [Jardiance] 10 mg PO DAILY 04/03/19 [History] Glimepiride 1 mg PO WITHBREAKFAST 04/03/19 [History] Lisinopril 20 mg PO BEDTIME 04/03/19 [History] Semaglutide [Ozempic] 1 mg SUBCUT WEEKLY 04/03/19 [History] metFORMIN [Glucophage XR] 1,000 mg PO BIDMEALS 04/03/19 [History] Omeprazole 20 mg PO DAILY 05/06/19 [History] atorvaSTATin [Lipitor] 40 mg PO BEDTIME 05/06/19 [History] - CURRENT (IN HOUSE) MEDS Current Meds: Current Medications Cefoxitin Sodium 1 gm/ Premix 50 mls @ 100 mls/hr IV ONETIME ULISSES Lactated Ringer's (Ringers, Lactated) 1,000 mls @ 125 mls/hr IV ASDIRECTED ULISSES Last Admin: 05/15/19 08:07 Dose: 125 mls/hr Scopolamine (Transderm-Scop) 1.5 mg TRDERM Q72H PRN PRN Reason: Nausea/Vomiting Discontinued Medications Fentanyl (Sublimaze) Confirm Administered Dose 250 mcg .ROUTE .STK-MED ONE Stop: 05/15/19 07:17 Lidocaine HCl (Xylocaine-Mpf 1%) Confirm Administered Dose 5 ml .ROUTE .STK-MED ONE Stop: 05/15/19 07:18 Midazolam HCl (Versed 1 Mg/Ml) Confirm Administered Dose 2 mg .ROUTE .STK-MED ONE Stop: 05/15/19 07:17 Ondansetron HCl (Zofran) Confirm Administered Dose 4 mg .ROUTE .STK-MED ONE Stop: 05/15/19 07:18 Propofol (Diprivan 20 Ml) Confirm Administered Dose 200 mg .ROUTE .STK-MED ONE Stop: 05/15/19 07:17 Rocuronium Calamus (Zemuron) Confirm Administered Dose 100 mg .ROUTE .STK-MED ONE Stop: 05/15/19 07:18
[2019-05-15] MEDS ORDERED: Bupivacaine 0.5% 10 ML SDV ONE ×2 (08:47→08:58)
[2019-05-15] MEDS ORDERED: ceFAZolin 1 GM Vial ONE (08:47)
[2019-05-15] MEDS ORDERED: Ondansetron 4 MG/2 ML SDV IVPUSH ONE (10:20)
[2019-05-15] MEDS ORDERED: Labetalol 100 MG/20 ML MDV IVPUSH PRN (10:20)
[2019-05-15] MEDS ORDERED: Sugammadex Sodium 200 MG/2 ML VIAL ONE (10:32)
[2019-05-15] MEDS ORDERED: Ketorolac 30 MG/ML SDV ONE (10:33)
[2019-05-15] MEDS ORDERED: Morphine 10 MG/ML Syringe IVPUSH PRN (10:55)
[2019-05-15] MEDS ORDERED: Ketorolac 10 MG Tab PO PRN (10:56)
--- NOTE | 2019-05-15 10:59 | PCM.OPNOTE ---
- General Post-Op/Procedure Note Date of Surgery/Procedure: 05/15/19 Operative Procedure(s): Laparoscopic cholecystectomy Pre Op Diagnosis: Symptomatic cholelithiasis Post-Op Diagnosis: Same Anesthesia Technique: General ET Tube (ASA II) Primary Surgeon: Aayush Casey Fluid Replacement, Intraop: 1,800 Output, Urine Amount: 50 EBL in mLs: 10 Condition: Good Free Text/Narrative:: DICTATION [id number] CPT CODE 41853
[2019-05-15] MEDS ORDERED: Lactated Ringers 1,000 ML IV SCH (11:00)
[2019-05-15] MEDS: fentaNYL 100 MCG/2 ML SDV IVPUSH PRN ×2 (11:01→11:12)
[2019-05-15] MEDS ORDERED: Acetaminophen 1,000 MG in Premix Bag 1 BAG IV ONE (11:12)
--- NOTE | 2019-05-15 11:26 | PCM.POSTAN ---
POST ANESTHESIA ASSESSMENT - MENTAL STATUS Mental Status: Alert, Oriented - VITAL SIGNS Vital Signs: Last Vital Signs Temp 98.8 F 05/15/19 10:52 Pulse 83 05/15/19 11:22 Resp 16 05/15/19 11:22 BP 147/81 H 05/15/19 11:22 Pulse Ox 95 05/15/19 11:22 - RESPIRATORY Respiratory Status: Respiratory Rate WNL, Airway Patent, O2 Saturation Stable - CARDIOVASCULAR CV Status: Pulse Rate WNL, Blood Pressure Stable - GASTROINTESTINAL GI Status: No Symptoms - POST OP HYDRATION Hydration Status: Adequate & Stable
--- NOTE | 2019-05-15 12:15 | PCM48HPAN ---
Post Anesthesia Note - EVALUATION WITHIN 48HRS OF ANESTHETIC Vital Signs in Normal Range: Yes Patient Participated in Evaluation: Yes Respiratory Function Stable: Yes Airway Patent: Yes Cardiovascular Function Stable: Yes Hydration Status Stable: Yes Pain Control Satisfactory: Yes Nausea and Vomiting Control Satisfactory: Yes Mental Status Recovered: Yes Vital Signs: Last Vital Signs Temp 98.8 F 05/15/19 10:52 Pulse 83 05/15/19 11:22 Resp 16 05/15/19 11:22 BP 147/81 H 05/15/19 11:22 Pulse Ox 95 05/15/19 11:22
--- NOTE | 2019-05-15 13:58 | OR ---
SURGEON: Aayush Casey M.D. DATE OF PROCEDURE: 05/15/2019 OPERATION PERFORMED: Laparoscopic cholecystectomy. PRIMARY SURGEON: Aayush Casey M.D. RESIDENTIAL TECH: seed laboratory assistant: ELISE West, assistant front office manager student. ANESTHESIA: General endotracheal ASA CLASSIFICATION: II. PREOPERATIVE DIAGNOSIS: Symptomatic cholelithiasis. POSTOPERATIVE DIAGNOSIS: Symptomatic cholelithiasis. ESTIMATED BLOOD LOSS: 10 mL. INTRAOPERATIVE FLUID REPLACEMENT: 1800 mL of crystalloid. INTRAOPERATIVE URINE OUTPUT: 50 mL. DESCRIPTION OF PROCEDURE: The patient was taken to the operating room and placed on the operating table in the supine position. Time-out was called for appropriate identification of the patient and procedure. Thigh-high TEDs and sequential compression boots were placed. Following satisfactory attainment of general endotracheal anesthesia, a Rooney catheter was placed in the patient's urinary bladder. The abdomen was prepped with DuraPrep solution, sterile drapes were applied. Skin approximately 2-1/2 to 3 inches below the umbilicus was infiltrated with 0.5% Marcaine solution. A skin incision was made and deepened through the subcutaneous tissue obtaining hemostasis with the use of electrocautery. The Veress needle was introduced into the peritoneal cavity. Saline drop test was positive. Carbon dioxide pneumoperitoneum was established with the release set at 13 cm of water. Once a satisfactory pneumoperitoneum was established, 5 mm camera and port were placed through the infraumbilical incision. The patient was now positioned with his feet down and rolled to the left. Under camera vision, 12 mm subxiphoid, 5 mm midclavicular, and 5 mm anterior axillary ports were placed. Each incision had preemptively been infiltrated with 0.5% Marcaine solution. The gallbladder was grasped, adhesions were taken down. The cholecystohepatic triangle was dissected free identifying the cystic duct and cystic artery. Critical view of each structure was obtained before hemoclipping. We did spill some bile, but no stones. Care was taken to aspirate all the bile, and at the end to the procedure, irrigated the peritoneal cavity. Once the cystic duct and cystic artery had been ligated and clipped, the gallbladder was dissected away from its bed using electrocautery. The gallbladder was promptly placed in an EndoCatch, which was retrieved through the 12 mm port. Under camera vision, right upper quadrant was again inspected and irrigated with 700 mL of 1% Ancef solution. All fluid was aspirated. The right hemidiaphragm was then irrigated with 250 mL of saline containing 20 mL of 0.5% Marcaine solution. That solution was left in place. Under camera vision, the subxiphoid, midclavicular, and anterior axillary ports were removed. Following that, the infraumbilical camera and port were removed. Wounds were inspected for hemostasis and small bleeding sites were electrocoagulated. The subxiphoid and infraumbilical incisions were closed in 2 layers approximating the subcutaneous tissue with 3-0 Vicryl and the skin with subcuticular 4-0 Monocryl. The anterior axillary and midclavicular incisions were closed with subcuticular 4-0 Monocryl. All incisions were Steri- Stripped and dressed with sterile Tegaderm pads. Sponge, needle, and instrument counts were all correct. Prior to emergence from anesthesia and extubation, the Rooney catheter was removed. Following emergence from anesthesia and extubation, the patient was taken to recovery room in stable condition. ADWOA ZAMORA /[id number]
== END 2019-05-15 12:30 | disposition home or self-care (01) ==
LOC: MW.SDS 07:16
PROVIDERS: ATTEND Surgery
DX: K80.10 Calculus of gallbladder with chronic cholecystitis without obstruction (principal); I10 Essential (primary) hypertension; E11.9 Type 2 diabetes mellitus without complications; F17.220 Nicotine dependence, chewing tobacco, uncomplicated; K62.5 Hemorrhage of anus and rectum; K64.9 Unspecified hemorrhoids; G62.9 Polyneuropathy, unspecified; Z79.84 Long term (current) use of oral hypoglycemic drugs; Z79.899 Other long term (current) drug therapy
CPT/HCPCS: 47562; 82962; A9270; J0131; J0690; J0694; J1885; J2001; J2250; J2405; J2704; J3010; J3490; J7120

== ENCOUNTER → 2023-01-21 | Day surgery (SDC) | payer BC, MEDICARE ==
[~2023-01-21] MED LIST changes: +Dexmedetomidine 200 MCG/2 ML SDV ONE; -Midazolam 1 MG/ML 2 ML SDV ONE; +Water For Injection, Sterile 20 ML ONE; -cefOXitin 1 GM in Premix Bag 1 BAG IV SCH; -fentaNYL 250 MCG/5 ML SDV ONE; +propofoL 0 ML ONE
== END | disposition home or self-care (01) ==
LOC: MW.SDS 06:32
PROVIDERS: ATTEND Surgery
DX: K29.50 Unspecified chronic gastritis without bleeding (principal); K31.7 Polyp of stomach and duodenum; K57.32 Diverticulitis of large intestine without perforation or abscess without bleeding; E11.9 Type 2 diabetes mellitus without complications; N20.0 Calculus of kidney; K62.5 Hemorrhage of anus and rectum; Z88.5 Allergy status to narcotic agent; Z79.84 Long term (current) use of oral hypoglycemic drugs; Z79.899 Other long term (current) drug therapy; Z86.010 Personal history of colon polyps; Z80.0 Family history of malignant neoplasm of digestive organs; Z90.49 Acquired absence of other specified parts of digestive tract; F17.290 Nicotine dependence, other tobacco product, uncomplicated; Z88.8 Allergy status to other drugs, medicaments and biological substances; Z79.4 Long term (current) use of insulin
CPT/HCPCS: 45380; J2704; J7120; 00731; J3490

== ENCOUNTER 2023-12-24 15:06 | Emergency (ER) | payer OTHER, BC ==
[2023-12-24] MEDS: Cyclobenzaprine 10 MG Tab PO ONE (18:09)
[2023-12-24] MEDS: Lidocaine 4% 1 each Patch TOP PRN (18:10)
[2023-12-24] MEDS: Ketorolac 30 MG/ML SDV IM ONE (18:10)
== END 2023-12-24 19:36 | disposition home or self-care (01) ==
LOC: MW.ED 15:06
DX: M54.16 Radiculopathy, lumbar region (principal); I10 Essential (primary) hypertension; E78.00 Pure hypercholesterolemia, unspecified; E11.9 Type 2 diabetes mellitus without complications; F17.210 Nicotine dependence, cigarettes, uncomplicated; Z75.8 Other problems related to medical facilities and other health care; Z79.899 Other long term (current) drug therapy; Z79.84 Long term (current) use of oral hypoglycemic drugs; Z88.6 Allergy status to analgesic agent; Z88.5 Allergy status to narcotic agent
CPT/HCPCS: 72100; 96372; 99283; A9270; J1885

== ENCOUNTER 2024-12-22 15:14 | Emergency (ER) | payer OTHER, BC ==
[2024-12-22] MEDS ORDERED: Sodium Chloride 0.9% 10 ML Syringe FLUSH PRN (15:35)
[2024-12-22] MEDS ORDERED: Sodium Chloride 0.9% 2.5 ML Syringe FLUSH PRN (15:35)
[2024-12-22 15:44] LABS: BASOPHILS ABSOLUTE AUTO 0.07 K/uL (0.00-0.20); BASOPHILS PERCENT AUTO 1.2 % (0.0-1.0); EOSINOPHILS ABSOLUTE AUTO 0.08 K/uL (0.00-0.45); EOSINOPHILS PERCENT AUTO 1.3 % (0.0-6.0); IMMATURE GRAN ABSOLUTE AUTO 0.01 K/uL (0.00-0.05); IMMATURE GRAN PERCENT AUTO 0.2 % (0.0-0.4); LYMPHOCYTES ABSOLUTE AUTO 1.48 K/uL (1.00-4.80); LYMPHOCYTES PERCENT AUTO 25.0 % (24.0-44.0); MEAN PLATELET VOLUME 12.0 fL (9.4-12.4); MONOCYTES ABSOLUTE AUTO 0.44 K/uL (0.00-0.80); MONOCYTES PERCENT AUTO 7.4 % (0.0-8.0); NEUTROPHILS ABSOLUTE AUTO 3.85 K/uL (1.80-7.70); NEUTROPHILS PERCENT AUTO 64.9 % (41.0-71.0); NRBC ABSOLUTE 0.00 K/uL (0.00-0.02); NRBC PERCENT 0.0 /100WBC (0.0-0.2); PLATELET COUNT,PLT 156 K/uL (150-400); RED BLOOD CELL COUNT 5.41 M/uL (4.52-5.90); WHITE BLOOD CELL COUNT,WBC 5.93 K/uL (3.9-11.3)
[2024-12-22 15:45] LABS: APPEARANCE,URINE CLEAR; GLUCOSE,URINE >=1000 mg/dL (NEGATIVE); OCCULT BLOOD,URINE SMALL (NEGATIVE)
[2024-12-22] MEDS: ceFAZolin 2 GM in Water For Injection, Sterile 20 ML IVPUSH ONE (15:46)
[2024-12-22 15:54] LABS: EPITHELIAL CELLS,URINE NOT SEEN (NONE-FEW)
[2024-12-22 16:14] LABS: A/G RATIO 1.1 (0.9-1.6); ALANINE AMINOTRANSFERASE,ALT 24.0 IU/L (14-63); ASPARTATE AMNIOTRANSFERASE,AST 14.0 IU/L (15-37); BILIRUBIN TOTAL 0.6 mg/dL (0.2-1.0); BLOOD UREA NITROGEN,BUN 20.0 mg/dL (7.0-18.0); CARBON DIOXIDE,CO2 25.5 mmol/L (21.0-32.0); CHLORIDE,CL 100.0 mmol/L (98-107); CREATININE 1.7 mg/dL (0.8-1.3); EST CRCL DRUG DOSING (CG) 38.77 mL/min; POTASSIUM,K 4.3 mmol/L (3.5-5.1); PROTEIN TOTAL,TP 7.3 g/dL (6.4-8.2); SODIUM,NA 136.0 mmol/L (136-148)
[2024-12-22 16:17] LABS: ESTIMATED GFR 44.0 mL/min (>60); GLUCOSE RANDOM 520.0 mg/dL (74-106)
[2024-12-22] MEDS ORDERED: 50% Dextrose in Water 50 ML Syringe IVPUSH PRN (16:39)
[2024-12-22] MEDS: Insulin Regular, Human 100 Units/ML 10 ML Vial IVPUSH ONE (16:57)
[2024-12-22] MEDS: Iopamidol 755 MG/ML 500 ML Multipack Bottle IVPUSH STA (17:00)
[2024-12-22] MEDS: Lidocaine 1% with EPINEPHrine 1:100,000 10 ML MDV INFILT ONE (18:58)
== END 2024-12-22 20:33 | disposition home or self-care (01) ==
LOC: MW.ED 15:14
DX: S32.302A Unspecified fracture of left ilium, initial encounter for closed fracture (principal); S61.412A Laceration without foreign body of left hand, initial encounter; S30.1XXA Contusion of abdominal wall, initial encounter; E11.65 Type 2 diabetes mellitus with hyperglycemia; R79.89 Other specified abnormal findings of blood chemistry; I10 Essential (primary) hypertension; E78.00 Pure hypercholesterolemia, unspecified; Z88.8 Allergy status to other drugs, medicaments and biological substances; Z79.4 Long term (current) use of insulin; Z79.899 Other long term (current) drug therapy; Z90.49 Acquired absence of other specified parts of digestive tract; W22.8XXA Striking against or struck by other objects, initial encounter
CPT/HCPCS: 12002; 36415; 73130; 73502; 73552; 74177; 80053; 81001; 82947; 83690; 85025; 96361; 96374; 96375; 96376; 99284; A9270; J0690; J1171; J1815; J7030; Q9967; 99283

== ENCOUNTER 2025-02-02 08:45 | Day surgery (SDC) | payer BC, OTHER ==
[2025-02-02] MEDS: Lactated Ringers 1,000 ML IV SCH (09:26)
[2025-02-02] MEDS ORDERED: propofoL 500 MG/50 ML 50 ML ONE (09:41)
[2025-02-02] MEDS ORDERED: Lidocaine 2% 11 ML Jelly Filled Syringe ONE (11:05)
[2025-02-02] MEDS ORDERED: Propofol 200 MG/20 ML SDV ONE (11:05)
[2025-02-02] MEDS ORDERED: fentaNYL 100 MCG/2 ML SDV ONE (11:05)
== END 2025-02-02 11:25 | disposition home or self-care (01) ==
LOC: MW.SDS 08:45
PROVIDERS: ATTEND Surgery
DX: K57.30 Diverticulosis of large intestine without perforation or abscess without bleeding (principal); I10 Essential (primary) hypertension; E11.9 Type 2 diabetes mellitus without complications; Z88.5 Allergy status to narcotic agent; Z88.6 Allergy status to analgesic agent; F17.200 Nicotine dependence, unspecified, uncomplicated; Z79.899 Other long term (current) drug therapy
CPT/HCPCS: 45378; J2704; J7120; J7999; A9270-GY; J2371; J3010; J3490